=== PATIENT | female | born 1965 | race Caucasian/White ===

== ENCOUNTER 2019-06-12 12:06 | Emergency (ER) | payer OTHER ==
[2019-06-12] MEDS ORDERED: Ketorolac Tromethamine 30 MG/ML VIAL ONE (13:41)
--- NOTE | 2019-06-12 14:35 | RAD ---
RIGHT FEMUR 2 VIEWS: Date: 06/12/19 HISTORY: Pain following an injury. FINDINGS: Degenerative changes and arthrosis changes right hip joint. No acute femoral fracture or dislocation, or other acute process. IMPRESSION: Unremarkable right femur. POS: RRE
--- NOTE | 2019-06-12 14:48 | RAD ---
RIGHT KNEE 4 VIEWS: Date: 06/12/19 HISTORY: Pain following an injury. IMPRESSION: Mild degenerative and osteoarthrosis changes. No fracture, dislocation, or other acute process. POS: RRE
--- NOTE | 2019-06-12 14:54 | RAD ---
RIGHT HIP 2 VIEWS: Date: 06/12/19 HISTORY: Pain following an injury. FINDINGS/IMPRESSION: Osteoarthrosis and degenerative changes right hip joint. Minimal hypertrophic osteophytosis. No evide nce for an overt fracture or dislocation. If patient has persistent or worsening right hip pain which does not resolve or patient cannot ambulate at preinjury ambulation levels, consider additional imag ing with nonemergent MRI. POS: RRE
== END 2019-06-12 14:53 | disposition home or self-care (01) ==
LOC: ERS 12:06
DX: S76.911A Strain of unspecified muscles, fascia and tendons at thigh level, right thigh, initial encounter (principal); I10 Essential (primary) hypertension; W23.0XXA Caught, crushed, jammed, or pinched between moving objects, initial encounter
CPT/HCPCS: 96372; J1885